=== PATIENT | female | born 1945 | race Caucasian/White ===

== ENCOUNTER 2020-12-26 07:04 | Inpatient (IN) | payer OTHER ==
[2020-12-26] VITALS (7 sets, daily range): BP systolic 124–149; BP diastolic 76–86
[~2020-12-26] VITALS: Ht 162.6 cm; Wt 59.9 kg
--- NOTE | ~2020-12-26 | EMS ---
[address] [address] EMS Patient Care Report Name: ELEANOR MOSQUEDA Room #: REG ALEIDA Mendosa#: [id number] Admission: 12/26/20 Attend Phys: Discharge: Date of : 43 Report #: [id number] THIS REPORT FOR: //name// Report Transmitted: 12/26/2020 07:15 EMS Care Summary [facility] MED-ACT Incident [id number] @ 12/26/2020 06:23 Incident Location [address] [place] [address] [place] [address] Patient ELEANOR MOSQUEDA Female, 75 Years 1945 Patient Address [address] [place] [address] Patient Allergies No known allergies, Patient Medications Aspirin, Chief Complaint Elbow Injury Disposition Transported No Lights/Hubbard Dispatch Reason Falls Transported To [facility] Narrative M1133 and E23 responded for a report of "Injuries from a Fall". Upon arrival on scene, E23 was rendering care to the patient, a 75 y/o female, sitting on the floor. The patient was crying hysterically and could not be calmed initially. Per care staff on scene, the patient was new to their facility as of today and they did not have much information known. The patient was in the [address] [address] EMS Patient Care Report Name: ELEANOR MOSQUEDA Room #: REG ER Deondre#: [id number] Admission: 12/26/20 Attend Phys: Discharge: Date of : 43 Report #: [id number] memory care unit, but due to EMS being unclear of her baseline, she was assigned a GCS of 14 as she was not appropriately able to answer questions about time, events, or place. Once the patient calmed down, she complained of pain to her right elbow. She was self splinting and would not allow responders to touch her arm at all or evaluate her. She agreed to allow responders to lift her from the floor to the stretcher. Once secured to the stretcher, patient was brought into the ambulance for further evaluation and transport. Upon arrival in the ambulance, EMS obtained baseline vitals. Patient's vitals remained within normal limits and patient reported her pain was manageable without pain medications as long as no one touched her arm. The patient continued to self-splint throughout transport. EMS palpated the patient's head, no swelling or deformities noted and no complaint of pain with palpation. The patient had no other visible injuries. Upon arrival at the hospital, EMS was directed to bring the patient to room 10. EMS gave report [id number] to ER staff and patient care was transferred at that time. Initial Vitals @06:57P: 118,R: 20,BP: 135/84,Pain: 6/10,GCS: 14,SpO2: 95,Revised Trauma: 12, @06:48P: 85,R: 20,BP: 123/72,Pain: 6/10,GCS: 14,Temp: 97.2F,SpO2: 98,Revised Trauma: 12, Assessments @06:37MENTAL:Confused,Person Oriented,SKIN:HEENT:LUNG SOUNDS:ABDOMEN:PELVIS//GI:EXTREMITIES:PULSE:NEURO: Impression Extremity Pain Procedures @06:40Surgical Mask on PatientResponse: Unchanged Timeline 06:20,Call Received 06:20,Psap Call 06:23,Dispatched 06:24,En Route 06:33,On Scene 06:35,At Patient 06:40,Surgical Mask on Patient,Response: Unchanged 06:47,Depart Scene 06:48,BP: 123/72 M,PULSE: 85,RR: 20 R,SPO2: 98 Ox,ETCO2: ,BG: ,PAIN: 6,GCS: 14, 06:57,BP: 135/84 M,PULSE: 118,RR: 20 R,SPO2: 95 Ox,ETCO2: ,BG: ,PAIN: 6,GCS: 14, [facility] [address] [place] [address] EMS Patient Care Report Name: ELEANOR MOSQUEDA Room #: REG ALEIDA Mendosa#: [id number] Admission: 12/26/20 Attend Phys: Discharge: Date of : 43 Report #: [id number] 07:00,At Destination 07:12,Call Closed Disclaimer v1.1 Copyright 2020 [employer] This EMS Care Summary contains data elements from the applicable legal record (which may be displayed differently). It is designed to provide pertinent information for the following purposes: continuity of care, clinical quality, and state data reporting. The complete legal record is available to ED staff and administrators of the receiving hospital in [facility]s Patient Tracker. All data is provided "as is."
[2020-12-26 08:38] LABS: HEMATOCRIT 39.9 % (37.0-47.0); HEMOGLOBIN 13.3 gm/dL (12.0-15.0); MCH 30.3 pg (26.0-34.0); MCHC 33.3 g/dL (28.0-37.0); MCV 90.8 fL (80.0-100.0); RBC 4.39 mil/uL (4.20-5.00); WBC 6.8 thou/uL (4.0-11.0)
[2020-12-26 08:49] LABS: CALCIUM 9.5 mg/dL (8.5-10.1); CREATININE 1.1 mg/dL (0.6-1.0); POTASSIUM 3.6 mmol/L (3.5-5.1)
[2020-12-26 08:54] LABS: ALBUMIN 3.8 g/dL (3.4-5.0); TOTAL BILIRUBIN 0.5 mg/dL (0.2-1.0); TOTAL PROTEIN 6.8 g/dL (6.4-8.2)
--- NOTE | 2020-12-26 12:06 | NUR ---
Case opened to follow for dc planning. Dermatologist Managing Partner visited with the pt at bedside this morning. She is alert and oriented to self only. She admits from [facility]. Dermatologist Managing Partner attempted to contact their DON x . She recently moved [facility] the memory care unit [facility] d/t increasing stm loss d/t dementia. The pt was up ad andrea but fell resulting in a displaced humerous fx. The pt's brother tifafny and sister in law donavan are her dpoa for hc and next of kin relatives. pt's pcp is dr. David Escobar. Covid neg test noted. Ortho consult for possible surgery this afernoon. CM attempted to reach her brother Tiffany via phone; message left. Anticipated dc plan is to return to the memory care when medically stable. Will reattempt to reach the [facility] and pt's bro to confirm the dc plan.
--- NOTE | 2020-12-26 13:54 | NUR ---
WOUND CONSULT; I WAS CONSULTED TO ASSESS THIS PATIENT FOR A RASH TO THE LE'S. THERE ARE NO WOUNDS ONLY HEALING SCABBED SCRATHES. THE PATIENT IS CONFUSED OR HAS A MENTAL HEALTH DIAGNOSIS, CONFABULATION OF WORDS. ERATIC BEHAVIOR ETC. RECOMMENDATIONS; D/C FROM WOUND CARE. DISCUSSED WITH TONEY
--- NOTE | 2020-12-26 15:04 | NUR ---
ROSEMARIE at [facility] Janet DYER [phone] and fax [phone]. Dc senior production planner to fax clinical update.
--- NOTE | 2020-12-26 17:16 | NUR ---
FAXED REFERRAL TO [facility] RECEIVED CONFIRMATION AND WILL F/U WITH MONET IN ADM TOMORROW.
--- NOTE | 2020-12-26 18:15 | NUR ---
PATIENT RETURNED FROM [facility] AT 1800. SLEEPING EASILY AROUSED. HAS SLING INTACT TO RIGHT ARM. V.S 98.0 16 97 141/84 O2 SAT= 98 RA. PT HAD ORIF RIGHT HUMERUS. NO RESP DISTRESS NO PAIN AT THIS TIME.
--- NOTE | 2020-12-26 20:14 | NUR ---
PATIENT CAME FROM ER WAS ADMITTED TO ROOM 436 COVID NEGATIVE TO HAVE ORIF RIGHT HUMERUS. PT WAS RESTLESS TRYING TO GET OUT OF BED. DR RODRIGUEZ GAVE 1 TIME ORDER FOR MARCO ANTONIO DUST BOX TENDER WANTED CONSULT FOR DR HERNANDEZ TO [facility] FOR SBU BUT SHE IS TAKING NO NEW PATIENTS PER DR RODRIGUEZ DUST BOX TENDER NOTIFIED. ADMISISSION PAPERWORK TO BE DONE BUT PATIENT HAS DEMENTIA AND UNABLE TO ANSWER QUESTIONS APPROP.
--- NOTE | 2020-12-27 01:52 | NUR ---
ASSESSED AT START OF SHIFT. PT IN BED. POST OP. LETHARGIC AND RESTLESS IN BED TRYING TO GET UP. ATIVAN GIVEN. IV INTACT AND ABX INFUSING. RT ARM DRESSING IN PLACE AND SLING INTACT. PT MOANS SOMETIMES. MORPHINE GIVEN FOR PAIN. PT BROTHER CALLED UNIT AND THIS NURSE UPDATED ON PROGRESS. FALL PREC IN PLACE AND CALL LIGHT AT REACH WILL CONT TO MONITOR.
[2020-12-27 03:14] VITALS: BP 147/91
[2020-12-27 05:33] LABS: ABSOLUTE NEUTROPHILS 7.8 thou/uL (1.4-8.2); BASOPHILS 0.2 % (0.0-2.0); EOSINOPHILS 0.1 % (0.0-3.0); HEMATOCRIT 39.3 % (37.0-47.0); HEMOGLOBIN 12.9 gm/dL (12.0-15.0); LYMPHOCYTES 6.6 % (24.0-44.0); MCH 30.2 pg (26.0-34.0); MCHC 32.9 g/dL (28.0-37.0); MCV 91.9 fL (80.0-100.0); MONOCYTES 10.1 % (1.0-8.0); PLATELET COUNT 308 thou/uL (150-400); RBC 4.27 mil/uL (4.20-5.00); RDW 13.8 % (10.5-14.5); WBC 9.4 thou/uL (4.0-11.0)
[2020-12-27 05:42] LABS: URINE BILIRUBIN NEGATIVE (Negative); URINE BLOOD NEGATIVE (Negative); URINE CLARITY CLEAR; URINE COLOR YELLOW; URINE GLUCOSE-RANDOM* NEGATIVE (Negative); URINE KETONES 2+ (Negative); URINE LEUKOCYTES-REFLEX NEGATIVE (Negative); URINE NITRITE-REFLEX NEGATIVE (Negative); URINE PROTEIN (DIPSTICK) NEGATIVE (Negative); URINE UROBILINOGEN 0.2 E.U./dl (0.2-1.0)
[2020-12-27 06:10] LABS: CALCIUM 8.7 mg/dL (8.5-10.1); CREATININE 0.9 mg/dL (0.6-1.0); POTASSIUM 3.6 mmol/L (3.5-5.1)
--- NOTE | 2020-12-27 07:22 | EKG ---
[place] [address] [place] [address] ELECTROCARDIOGRAM REPORT Name: ELEANOR MOSQUEDA Room #: 436-P ADM IN M.R.#: [id number] Admission: 12/26/20 Attend Phys: Maame Fitzpatrick Discharge: Date of : 41 Report #: [id number] [facility] ED Test Date: 2020-12-26 Test Time: 09:39:52 Pat Name: ELEANOR MOSQUEDA Department: Room: 436 Gender: F Heavy Equipment Service Manager: JOSE : 1945 Requested By: Ej Cm Order Number: [id number] MD: Sven Marie Measurements Intervals [place] Rate: 115 P: MT: QRS: -2 QRSD: 81 T: -3 QT: 341 QTc: 472 Interpretive Statements Sinus rhythm with occasional atrial premature complexes Poor R wave progression Nonspecific ST segment abnormality No previous ECG available for comparison Electronically Signed On 12-27-2020 7:22:07 GREETING CARD EDITOR by Sven Marie [email or web address] <ELECTRONICALLY SIGNED> By: Sven Marie MD, [facility] 12/27/20 0722 0939 09 Sven Marie MD, FACC /EPI
--- NOTE | 2020-12-27 07:41 | NUR ---
ASSUMED CARE OF PATIENT SHE IS SLEEPING IN BED NO RESP DISTRESS,NO PAIN SLING IN PLACE.
[2020-12-27 08:24] VITALS: BP 134/89
--- NOTE | 2020-12-27 11:48 | NUR ---
Pt's bro/dpsara Alexx updated on plan for psych/SBU eval. He is in agreement and supportive of that. He is aware that [facility] memory care is not comfortable with taking her back unless her behaviors/aggitation are addressed. Kaitlin eval pending.
--- NOTE | 2020-12-27 12:03 | NUR ---
LIBBY spoke with Janet at [facility],[phone]. Janet informed the Pt came to [place] from [facility]. While at [facility] Pt eloped, refused to take medications and had behavioral concerns that included increased aggression and increased anxiety. Pt was perscribed Sertraline and Buspar to assist with the behaviors but refused to take her medications. Upon Pt arriving to [place] Pt became increasingly aggitated, attempted to kick in other residents doors and break out glass. Pt was screaming, cussing and using her cat as a weapon ( holding the cat up to staff while the cat was hissing and clawing). During this episode Pt fell and hit her head. Janet stated that [place] is willing to take the Pt back if Pt's is stable and taking her medications with a decrease in negative behaviors. SW team will continue to follow up.
--- NOTE | 2020-12-27 13:25 | NUR ---
SW reviewed chart and spoke with nursing and attending physician. Pt is POD#1. Pt has right humerus fx. PT/OT to evaluate pt for recommendations for discharge. Psych consulted. Awaiting input from psych regarding possible inpt [facility] psych placement. SW to follow up with pt's brother, Alexx, after psych eval. SW is following to assist as needed with discharge planning.
[2020-12-27 16:07] VITALS: BP 121/67
--- NOTE | 2020-12-27 19:47 | NUR ---
[facility] HERE TO TRANSPORT PATIENT TO [facility] PATIENT WAS FROM THAT FACILITY. ASSIST XS 4 TO [facility]. ALL IV ACSESS WAS DCD PER REQUEST FROM [facility] BROWN WAS LEFT IN PLACE. PT WAS GIVEN MORPHINE BEFORE IV PULLED. HAS ANXIETY AND PULLS AT THINGS AND YELLS CONFUSED AT TIMES TAKES O2 /NC OFF. PT 'S FAMILY HERE BEFORE DISCHARGE TOOK BELONGINGS. REPORT WAS GIVEN AT 1700 TO GILMER AT [facility].
--- NOTE | 2020-12-27 23:06 | NUR ---
PER REPORT,PT RIPPED ALL HER DRSG OFF HER ARM AND REFUSED THE AM NURSE T FIX THE DRSG.PT WAS OBSERVED TO BE CONFUSED,FORGETFUL AND IMPULSIVE AT SHIFT CHANGGE.PT TRIED MULTIPLE TIMES TO GET OUT OF BED WITHOUT ASSISTANCE.PT WAS NOT REDIRECTABLE AT THE TIME.COMPLAINT EVALUATION OFFICER ON DUTY NOTIFIED,ORDER NOTED AND CARRIED OUT.PT SLEEPING AT THIS TIME.PT'S SURGERY SITE WITH BRUISING ALL OVER.DRSG ON HER ARM REINFORCED.CALL LIGHT WITHIN REACH.
[2020-12-28 07:45] VITALS: BP 110/73
--- NOTE | 2020-12-28 13:47 | NUR ---
CM TOLD BY DR COREAS DURING PT ROUNDING TO MOVE FORWARD W/SNF VS [facility]. CM SPK W/ PT'S BROTHER, KRISTINA MCCURDY SNF CHOICES. THE FOLLOWING ARE KRISTINA PREFERENCES IN CHRONOLOGICAL ORDER 1. [facility] - 1ST CHOICE 2. [facility] - 2ND CHOICE 3/4. [facility] (NO PREF BTWN THESE TWO) 5. [facility] - LAST CHOICE D/C AXLE BEARING POLISHER TO SEND REFERRALS TO [facility] AND [facility] THIS CM SENT REFERRALS TO [facility] [phone] (F), [facility] [phone] (F), AND [facility] [phone]. CM SPK W/MONIQUE AT [facility] AND SHE STATED THEY ARE WILLING ACCEPT PT BACK TO FACILITY AFTER SNF STAY
[2020-12-28 15:55] VITALS: BP 118/70
--- NOTE | 2020-12-28 18:30 | NUR ---
PT ASSESSED AT START OF SHIFT. ALERT AND PLEASANTLY CONFUSED. VERY FORGETFUL. UP TO AMBULATE HALLS W/ THERAPIST. SAT UP IN THE CHAIR FOR SEVERAL HOURS. TOOK RT ARM BRACE OFF OF ARM. MARCELA DSNG W/ SOME DRIED BLOODY DRAINAGE. BRACE REDONE. PT CONTINENT OF URINE. ATE GOOD AT DINNER. TALKED W/ BROTHER THIS AFTERNOON. PLAN FOR PT TO GO FOR REHAB.
[2020-12-28 19:59] VITALS: BP 120/80
--- NOTE | 2020-12-29 04:25 | NUR ---
ASSUMED PT CARE AT 1900.PT WAS CONFUSED/FORGETFUL AND IMPULSIVE AT START OF SHIFT.PT WAS OBSERVED CLIMBING OUT OF THE BED SEVERAL TIMES WITHOUT ASSISTANCE.PT STATED"I WANT TO GO AND GET THE KEVIN".PT NEEDED CONSTANT REMINDER FOR REDIRECTION.PT NOT COMPLAINT WITH FALL PRECAUTIONS.PRN PAIN AND ANXIETY MEDICATION GIVEN.PT SLEEPING ON HER BED AT THIS TIME.CALL LIGHT WITHIN REACH.
[2020-12-29 08:02] VITALS: BP 143/95
[2020-12-29] MEDS ORDERED: COLACE 100 MG100 MG PO (09:42)
[2020-12-29] MEDS ORDERED: VITAMIN B-12500 MCG PO (09:42)
[2020-12-29] MEDS ORDERED: RISPERDAL 1 MG T1 MG PO (09:42)
[2020-12-29] MEDS ORDERED: PEPCID20 MG PO (09:42)
[2020-12-29] MEDS ORDERED: TRAMADOL 50 MG50 MG PO (09:43)
--- NOTE | 2020-12-29 14:06 | NUR ---
Assumed pt care at 7am.Pt in bed very confused and disoriented.Getting out of bed without assist.Ttransfered pt to chair with assist.Am meds given with breakfast.Pt calm down for few hours before showing severe agitation.Dr Fitzpatrick notified,order noted.Seroquel po given as ordered.Pt later relaxed and calm. Will continue to monitor.
[2020-12-29 15:00] VITALS: BP 181/97
[2020-12-29 16:15] VITALS: BP 135/84
[2020-12-29 16:29] VITALS: BP 135/84
--- NOTE | 2020-12-29 19:40 | NUR ---
PT CARE ASSUMED AT 1615. ASSESSMENTS CHARTED. MEDICATIONS CHARTED. LAC IV. INCONTINENT B&B. SINUS TACHYCARDIA; SVT UP ON 4TH FLOOR. CLOSED FX OF DISTAL RT HUMERUS. STITCHES ON RT ELBOW. PT IS IN WRIST RESTRAINTS DUE TO PULLING ON MEDICAL EQUIPMENT AND COMBATIVE BEHAVIOR, WILL THROW THINGS. PT IS A FEEDER.
[2020-12-29 22:17] VITALS: BP 135/84
[2020-12-30] VITALS (9 sets, daily range): BP systolic 126–160; BP diastolic 63–110
--- NOTE | 2020-12-30 07:38 | NUR ---
PATIENT SLEPT A COUPLE HOURS TONIGHT. ALERT TO SELF; VERY CONFUSED. IN WRIST RESTRAINTS. PT HAD SITTER DURING SHIFT. PT DENIED MOST CARES AND MEDS THROUGHOUT THE NIGHT. PT HAS HX OF BEING COMBATIVE. ST ON THE MONITOR. FALL PRECAUTIONS IN PLACE. CONTINUING TO ASSESS CLOSELY ACCORDING TO POC.
--- NOTE | 2020-12-30 20:02 | NUR ---
PT CARE ASSUMED AT 0700. ASSESSMENTS CHARTED. MEDICATIONS CHARTED. LAC IV. SINUS TACHYCARDIA. RESTRAINTS - SOFT BILAT RESTRAINTS. CLOSED FX OF DISTAL RT HUMERUS. AGITATED, COMBATIVE AT TIMES.
[2020-12-31] VITALS (8 sets, daily range): BP systolic 99–137; BP diastolic 54–90
[2020-12-31 03:26] LABS: HEMATOCRIT 36.6 % (37.0-47.0); MCH 30.2 pg (26.0-34.0); MCHC 32.8 g/dL (28.0-37.0); MCV 91.9 fL (80.0-100.0); RBC 3.99 mil/uL (4.20-5.00); RDW 13.8 % (10.5-14.5); WBC 7.3 thou/uL (4.0-11.0)
[2020-12-31 03:36] LABS: CALCIUM 8.6 mg/dL (8.5-10.1); CREATININE 0.8 mg/dL (0.6-1.0)
--- NOTE | 2020-12-31 07:24 | EKG ---
[address] [employer] [address] ELECTROCARDIOGRAM REPORT Name: ELEANOR MOSQUEDA Room #: 219-P ADM IN M.R.#: [id number] Admission: 12/26/20 Attend Phys: Maame Fitzpatrick Discharge: Date of : 41 Report #: [id number] [facility] Test Date: 2020-12-29 Test Time: 14:52:15 Pat Name: ELEANOR MOSQUEDA Department: Room: 219 Gender: F Director Erp: : 1945 Requested By: Maame Fitzpatrick Order Number: [id number] MD: Marco Smith Measurements Intervals [place] Rate: 142 P: 43 LA: 139 QRS: -12 QRSD: 77 T: -11 QT: 283 QTc: 435 Interpretive Statements Supraventricular tachycardia Multiform ventricular premature complexes Repolarization abnormality, prob rate related Compared to ECG 12/26/2020 09:39:52 Ventricular premature complex(es) now present Early repolarization now present Sinus rhythm no longer present Atrial premature complex(es) no longer present Poor R-wave progression no longer present ST (T wave) deviation no longer present Electronically Signed On 12-31-2020 7:24:47 DIRECTOR OF SERVICES by Marco Smith [email or web address] <ELECTRONICALLY SIGNED> By: Marco Smith MD, FAC 12/31/20 0724 1452 1452 Marco Smith MD, FAC /EPI
--- NOTE | 2020-12-31 08:15 | NUR ---
ASSUME CARE 1900. PT/VITALS STABLE. INTERMITEENT LEFT ARM PAIN. MODERATE TOLERACE TO ACTIVITY. ASSESSMENT CHARTED. PROGRESING WELL WITH POC. PT IS A/O TO PERSON ONLY AND SOMETIMES UNCOOPERATIVE WITH CARE. SR/ST ON MONITOR. PLAN IS TO CONTINUE TO MONITOR FOR INFECTION/MANAGE PAIN. WILL FOLLOW WITH POC
--- NOTE | 2020-12-31 16:52 | NUR ---
Patient continues in restraints. Sp with brother discussed difficult stiuation as patient with need for skilled care rehab care and at times combative. Plan to send referrals to [facility]. No skilled facilites have responded to refrrals at this time.
--- NOTE | 2020-12-31 19:09 | NUR ---
PT CARE ASSUMED AT 0700. ASSESSMENTS CHARTED. MEDICATIONS CHARTED. LAC IV. RESTRAINTS REMOVED PER DR DIAZ, NOT INTERFERING WITH DEVICES. SINUS RHYTHM. PT FEEDING HERSELF.
[2021-01-01 05:00] VITALS: BP 129/89
[2021-01-01 08:00] VITALS: BP 119/54
--- NOTE | 2021-01-01 08:30 | NUR ---
ASSUME CARE 1900. PT/VITALS STABLE. INTERMITTENT YENIFER PAIN WITH RELIEF MODRATE RELIEF FROM PAIN MEDS. UP STB ASSIST/GOOD ENDURANCE TO ACITIVITY. NO DISTRESS NOTED. A/O TO SELF/CONFUSED/FORGETFUL BUT PLEASANT. HAS BECOME MORE COOPERATIVE WITH CARE, TAKES MEDS, AND FOLLOWS COMMANDS. PT SEEMS TO BE MORE AWARE EVEN OF PLACE AND PERSON EVEN THOUGH STILL VERY FORGETFUL OF SITUATION O INCONTINENCE NOTED. PT UP TO BATHROOM WITH SUPERVISION. WILL CONTINUE TO MONITOR AND FOLLOW WITH POC
[2021-01-01 12:30] VITALS: BP 112/60
--- NOTE | 2021-01-01 12:32 | NUR ---
[facility] declined patient. [facility] did not receive referral. Spoke with [facility] [place]. Sp with Lucie with their SBU. No bed avail today but they will review. Son expressed interest in [facility]. Patient restraint free this am.
--- NOTE | 2021-01-01 16:52 | NUR ---
ASSUMED PT CARE AT 0700. PT IN BED RESTING. PT IS ALERT AND ORIENTED TO SELF. PT IS PLEASANT AND COOPERATIVE. PT REMAINED PLEASANT AND COOPERATIVE TODAY. PT HAS BEEN OUT OF RESTRAINTS FOR 24 HOURS AND SW IS WORKING ON PT PLACEMENT. VSS. WILL CONTINUE TO MONITOR.
[2021-01-01 17:00] VITALS: BP 139/80
--- NOTE | 2021-01-01 17:21 | NUR ---
REFAXBRAD PRINCE TO [facility] RECEIVED CONFIRMATION AND LEFT MSG WITH KATY IN ADM WILL F/U WITH HER TOMORROW AM.
--- NOTE | 2021-01-01 17:23 | NUR ---
FAXED REFERRAL TO [facility] RECEIVED CONFIRMATION WILL F/U WITH FACILITY IN THE AM.
[2021-01-01 19:31] VITALS: BP 140/68
[2021-01-02 04:25] VITALS: BP 138/93
--- NOTE | 2021-01-02 07:30 | NUR ---
ASSESSMENT CHARTED, MEDS CHARTED GIVEN PATIENT HAS RIGHT ARM IN SPINT POST HUMERUS FX SURGERY. HX DEMENTIA. PATIENT CONFUSED ALL SHIFT. REPEATEDLY PULLING AT MEDICAL EQUIPMENT, GETTING OUT OF BED, FOLDING BEDDING. WOULD REDIRECT EASILY, THEN RETURN TO PREVIOUS CONFUSED THOUGHT TRAIN. BED ALARM ON AT ALL TIMES. FALL PRECAUTIONS IN PLACE DURING SHIFT.
[2021-01-02 08:00] VITALS: BP 122/82
--- NOTE | 2021-01-02 10:13 | NUR ---
Nutrition: pt admitted S/P fall with humerus fx, ORIF. Feeds self and reports good appetite, eating 50-75% of meals. Enjoys the food. K-3.2, replacing. Also on B12 supplementation. No weight changes. Low nutrition risk.
--- NOTE | 2021-01-02 14:46 | NUR ---
NEW IV 22G STARTED IN HER LEFT AC HER OTHER ONE NEAR THAT AREA WAS LEAKING ALL AROUND THE TIP SITE. SHE IS NO LONGER CLIMBING OUT OF BED AND ASKING ABOUT HER CATS. ENCOURAGE HER TO JUST SLEEP NOW AND TAKE A BREAK.
--- NOTE | 2021-01-02 15:36 | NUR ---
[facility] declined patient. [facility] declined patient who feel she needs memory care. SBU at [facility] unable to accept due to capacity. [facility] declined patient. Referrals to [facility] and [facility] for behavioral health. [facility] declined due to capacity. Sp with brother Alexx. He reports he has concerns of patient having an episode again of outburst. He is less concerned with physical rehab. He is aware restraint free for 24 hours but wants to be assured she is stable on regime. Discussed how she did today with nursing and relayed to son. Son unsure of any other skilled facility to review.
[2021-01-02 19:40] VITALS: BP 131/70
[2021-01-03 03:50] VITALS: BP 114/52
--- NOTE | 2021-01-03 06:36 | NUR ---
ASSESSMENTS CHARTED, MEDS CHARTED GIVEN. PATIENT SLEPT THE ENTIRE SHIFT AFTER INITIAL ANXIOUS CONFUSSION. REWRAPPED ROSARIO BANDAGE WRAP AFTER PATIENT DISMANTLED SPLINT. MARCELA DRESSING STILL INTACT. PATIENT UP TO BATHROOM WITH STANDBY ASSIST DURING SHIFT. FALL PRECAUTIONS IN PLACE DURING SHIFT.
[2021-01-03 08:15] VITALS: BP 131/74
--- NOTE | 2021-01-03 10:57 | NUR ---
FAXED REFERRAL TO [facility] RECEIVED CONFIRMATION AND WILL F/U WITH ADM FAXED REFERRAL TO [facility]. FOR [facility] SPOKE WITH SLAVA IN ADM THEY DENIED PT DOES NOT MEET THEIR CRITERIA AND IS NOT IN ACUTE DISTRESS.
[2021-01-03 12:15] VITALS: BP 130/68
--- NOTE | 2021-01-03 16:12 | NUR ---
Case discussed with the care team. Referrals sent to [facility] memory care which offers skilled rehab. They have one bed and are evaling. They need therapy updates, clearance from psych, no iv meds or restraints for 24hrs, and covid neg test to accept. Referral also sent to [facility]. They declined and do not feel the pt meets the inpt criteria. Pt's brother Alexx updated. Covid test pending. Pt given IV ativan this am due to picking at her iv and splint dressing. Case discussed with psych and the attending. They will reeval and feel the pt may be able to dc to SNF at [facility] or even return to her [facility] memory care at [facility] vs needing a kellie psych stay. Pt's brother updated. Awaiting psych imput, covid test, and updated therapy notes.
[2021-01-03 16:15] VITALS: BP 130/62
--- NOTE | 2021-01-03 19:09 | NUR ---
PT CARE ASSUMED AT 0700. ASSESSMENTS CHARTED. MEDICATIONS CHARTED. LAC IV. BSC. SINUS RHYTHM. ATIVAN D/C'D. POSSIBLE DISCHARGE TOMORROW. PT GOT OUT OF BED AND ENTERED THE FROST ONCE.
[2021-01-03 19:58] VITALS: BP 126/56
--- NOTE | 2021-01-04 05:13 | NUR ---
ASSUMED PATIENT CARE AT 1845. VITAL SIGNS STABLE WITH PATIENT HAVING NO COMPLAINTS OF NAUSEA. PATIENT DID COMPLAIN OF PAIN IN LEFT ARM AND ELBOW WHICH WAS TREATED APPROPRIATELY THROUGH MEDICATIONS TO GOOD AFFECT. ORIENTED TO SELF, CONFUSED AND IMPULSIVE. PATIENT WAS MOVED TO ROOM 217 TO BE CLOSER TO NURSES STATION. UP MULTIPLE TIMES WITH ASSISTANCE INCIDENT FREE, PATIENT IS A HIGH FALL RISK. CONTINUE PLAN OF CARE.
[2021-01-04 05:17] VITALS: BP 117/73
[2021-01-04 07:40] VITALS: BP 130/57
--- NOTE | 2021-01-04 08:20 | NUR ---
ASSUMED CARE FOR PT AT THIS TIME. PT SITTING UP IN BED, ASKING REPEATEDLY ABOUT "WHERE ARE THE GUYS", REORIENTED PT. PT CALM AND COOPERATIVE AT THIS TIME. MEDICATION ADMINISTRATION. VSS. WILL CONTINUE TO MONITOR.
[2021-01-04] MEDS ORDERED: METOPROLOL TART25 MG PO (10:38)
[2021-01-04] MEDS ORDERED: TYLENOL EXTRA500 MG PO (10:38)
--- NOTE | 2021-01-04 11:11 | NUR ---
[facility] has accept the pt for a rehab stay. Pt's brother Alexx updated and agreeable. Update given to Janet the DON at [facility] also. They are willing to accept her back after her rehab stay. The [facility] liason has also talked with Janet and Alexx. Neg covid test and dc orders faxed and verified with admissions. Chart copy is ready to be sent with the pt and nursing to call report. Alexx to email a copy of his dpoa document to admissions at [facility]. They have a w/c van transport scheduled for noon. All parties updated.
[2021-01-04 11:35] VITALS: BP 113/70
--- NOTE | 2021-01-04 11:51 | NUR ---
ATTEMPTED REPORT AT 1125 AND AGAIN AT 1150. UNABLE TO REACH NURSE. TRANSPORTATION SET UP FOR NOON. WILL HAVE PT PREPARED FOR TRANSPORTATION.
--- NOTE | 2021-01-04 12:23 | NUR ---
PT LEFT UNIT VIA WHEELCHAIR AND [place]ANNON STAFF. IV D/C. PT AMBULATED TO WHEELCHAIR.
--- NOTE | 2021-01-09 15:09 | O ---
[facility] [place] [address] OPERATIVE REPORT Name: ELEANOR MOSQUEDA Room #: 217-P [facility] IN M.R.#: [id number] Admission: 12/26/20 Attend Phys: Maame Fitzpatrick Discharge: 01/04/21 Date of : 41 Report #: [id number] THIS REPORT FOR: cc: FAM - Family physician unknown FAM - Family physician unknown Ez March MD ~ DATE OF SERVICE: 12/26/2020 PREOPERATIVE DIAGNOSIS: Right intraarticular comminuted distal humerus fracture. POSTOPERATIVE DIAGNOSIS: Right intraarticular comminuted distal humerus fracture. PROCEDURE: ORIF right distal humerus fracture with olecranon osteotomy. SURGEON: Ez March MD. STREAM CONTROL OFFICER: Izabela Monique PA-C. INDICATIONS FOR STREAM CONTROL OFFICER: Throughout the case, extensive retraction and manipulation of the elbow was required as well as maintenance of reduction of fracture during fixation. This was afforded to me by my business development assistant. ANESTHESIA: LMA. IMPLANTS: [employer] medial and lateral distal humeral locking plate and a short olecranon locking plate for osteotomy fixation. TOURNIQUET TIME: 77 minutes. ESTIMATED BLOOD LOSS: 25 mL. COMPLICATIONS: None. SPECIMENS: None. CONDITION UPON LEAVING THE OPERATING ROOM: Stable. INDICATIONS FOR PROCEDURE: The patient is a 75-year-old female who fell at her nursing facility and sustained a closed comminuted intra-articular distal humerus fracture. This had significant displacement and after discussion with her durable power of patent attorney elected for ORIF of the distal humerus. DESCRIPTION OF PROCEDURE: Risks, benefits, alternatives, complications were [facility] [address] [place] [address] OPERATIVE REPORT Name: ELEANOR MOSQUEDA Room #: 217-P DIS IN M.R.#: [id number] Admission: 12/26/20 Attend Phys: Maame Fitzpatrick Discharge: 01/04/21 Date of : 41 Report #: [id number] discussed in detail with the patient's durable power of patent attorney, including but not limited to risk of anesthesia, risk of damage to nerves, arteries, blood vessels, risk for malunion, nonunion, infection, need for reoperation. Informed consent was obtained from the DPOA. Right arm was appropriately marked in the preoperative holding area. She was brought to the operating room and LMA anesthesia was induced without complication. She was transferred to the operating room table and placed in the left lateral decubitus position and secured with the beanbag. Right upper extremity was prepped and draped in normal sterile fashion. Timeout was performed properly identifying the patient and procedure as well as the instrumentation and implants. All in the operating room were in agreement. A sterile tourniquet was applied. Right upper extremity was exsanguinated, tourniquet was inflated. Tourniquet time was 77 minutes. A standard posterior approach to the distal humerus was made with #10 blade through the skin. Dissection was taken down to the triceps fascia and deep flaps were developed medially and laterally. We first attempted to just do medial and lateral windows without olecranon osteotomy. The ulnar nerve was identified, dissected out and protected throughout the case. Medial and lateral window was made along the distal triceps. Fracture was identified and cleaned out. We were unable to visualize completely the distal and after there was a comminuted intraarticular portion and it was felt to adequately fix this an olecranon osteotomy would be required. A small sagittal saw was then used to make an osteotomy and the triceps was reflected. The fracture was more easily visualized and was held reduced with the multiple K wires as well as a [id number] reduction forceps. A posterolateral plate was applied to the lateral column and multiple 3.7 and 3.5 locking screws were placed for lateral column fixation. Medial column was fixed with a direct medial plate with combination of 2.7 marking as well as 3.5 locking screws for fracture fixation and placement of hardware as was the case. After this, the olecranon osteotomy was fixed with a short olecranon plate with the 4 screws total used for olecranon osteotomy fixation through the plate. Final fluoroscopic images were taken to verify adequate fracture reduction and placement of hardware as was the case. The wound was thoroughly irrigated with normal saline. The deep fascia was closed with 0 Vicryl and the ulnar nerve was transposed anteriorly and skin was closed with 2-0 Vicryl, skin staple and a posterior splint was applied. The patient tolerated this procedure well and went to the recovery room under care of anesthesia postoperatively. <ELECTRONICALLY SIGNED> By: Ez March MD 01/09/21 1509 1718 1804 Ez March MD /nt
== END 2021-01-04 12:25 | DRG 492 ==
LOC: ER 07:04 → EROBS 09:55 → 4S 09:55 → 2N 12-29 15:38
PROVIDERS: Emergency Medicine; Hospitalist; Nurse Practitioner; ADMIT Hospitalist; ATTEND Hospitalist
PROC: 0PSF04Z Reposition Right Humeral Shaft with Internal Fixation Device, Open Approach (ICD-10-PCS; principal; 2020-12-26)
DX: S42.411A Displaced simple supracondylar fracture without intercondylar fracture of right humerus, initial encounter for closed fracture (principal); N17.0 Acute kidney failure with tubular necrosis; G92 Toxic encephalopathy; F03.91 Unspecified dementia, unspecified severity, with behavioral disturbance; Z66 Do not resuscitate; E53.8 Deficiency of other specified B group vitamins; E87.6 Hypokalemia; R21 Rash and other nonspecific skin eruption; Z20.822 Contact with and (suspected) exposure to COVID-19; Z47.89 Encounter for other orthopedic aftercare; Z79.899 Other long term (current) drug therapy; W18.39XA Other fall on same level, initial encounter; Y93.89 Activity, other specified; Y92.89 Other specified places as the place of occurrence of the external cause; Y99.8 Other external cause status
CPT/HCPCS: 10081; 10102; 50010; 50101; 50386; 50417; 50951; 51412; 52122; 56524; 56528; 57178; 57254; 58280; 58515; 58516; 58517; 58518; 58519; 58520; 58521; 58522; 58523; 58524; 58525; 58526; 58527; 58528; 58529; 58530; 58531; 58540; 62110; 62900; 70005

== ENCOUNTER 2021-03-06 08:55 | Inpatient (IN) | payer OTHER ==
[~2021-03-06] VITALS: Ht 160 cm; Wt 55.7 kg
[~2021-03-06 08:55] MED LIST: ANTACID ULTRA PO; CENTRAVITES 501 EAC1 PO; COLACE 100 MG100 MG PO; COLACE100 MG PO; DOXYCYCLINE 10100 MG PO; EUCERIN CREME57 GM TOP; METOPROLOL TART25 MG PO; OMEPRAZOLE 20 M20 M1 PO; PEPCID20 MG PO; RISPERDAL 1 MG T1 MG PO; TRAMADOL 50 MG50 MG PO; TYLENOL EXTRA500 MG PO; VITAMIN B-121000 MC2 PO; VITAMIN B-12500 MCG PO; VITAMIN D325 MC3 PO
--- NOTE | 2021-03-06 15:00 | NUR ---
PT ADMITTED RELATED TO INCISION AND DRAINAGE OF ELBOW. CM REVIEWED CHART AND SPOKE WITH CARE TEAM. CM MET WITH PT AND BROTHER SANGEETHA AT BEDSIDE THIS DAY. THEY INDICATED THAT PT RESIDES AT [facility]. 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 HE INDICATED NO RECENT HH HX. PT HAD BEEN TO [facility] FROM 01/04-01/18. CM CALLED AND SPOKE WITH MONET AT [facility] AND SHE INDICATED THAT PT NEEDED [facility] FOR ADLS BUT OTHERWISE [facility]. PT AND BROTHER INDICATED THAT THEY HOPE THAT PT WILL BE ABLE TO RETURN TO [facility] ONCE MEDICALLY STABLE. [facility] SAID THEY WOULD BE ABLE TO ACCEPT HER BACK LONG SHE WASN'T ON ANY IV ABX UPON DC.
[2021-03-06 16:02] VITALS: BP 160/81
[2021-03-06 19:17] VITALS: BP 152/87
--- NOTE | 2021-03-06 20:28 | NUR ---
ASSUMED PT CARE AROUND 1814. PT ALERT X ORIENTED X 3, FORGET FUL.IV LF WRIST WITH LR/ 100ML/HR.VSS. FALL PRECAUTION IN PLACE. SCDS/TEDS ON.ROSARIO WRAP IN RT ELBOW. BROTHER WAS IN THE ROOM WHEN THE PT CAME TO THE FLOOR. BROTHER SAID, SHE MGHT NEED SOME ANXIETY MEDS. SHIFT REPORT GIVEN TO NIGHT NURSE.
--- NOTE | 2021-03-07 05:40 | NUR ---
PT IS ALERT TO SELF. CONFUSED AND IMPULSIVE. DOES OT KEEP SLING ON-R ELBOW WITH SPLINT INTACT. PT BEEN GOING TO THE BATHROOM WITH SBA.SHE TOOK HS MEDS-NO SWALLOW DIFFICULTIES. VOIDING OKAY, R FINGERS WITH GOOD CSM.AFEBRILE.FALL PREC IN PLACE.
[2021-03-07 08:00] VITALS: BP 131/72
--- NOTE | 2021-03-07 12:47 | NUR ---
ON-GOING ASSESSMENT: CM REVIEWED CHART. PT REMAINS ON IV ANBX. ID WAS CONSULTED TO SEE PATIENT. CM RECEIVED A CONSULT THAT PT WILL LIKELY NEED TO REMAIN ON IV ANBX FOR SOME TIME PENDING ID RECOMMENDATIONS. PT IS FROM [facility] WHO CANNOT ACCEPT HER ON IV ANBX AND SHE WILL LIKELY NEED SNF. CM REACHED OUT TO PATIENTS BROTHER/DPOA TO DISCUSS. PT WAS RECENTLY AT [facility] AND HE PREFERS SHE GOES BACK THERE. CM FAXED REFERRAL AND AWAITING INPUT FROM [facility] AND REQUESTED TO CHECK HER SNF DAYS.
[2021-03-07 16:45] VITALS: BP 137/69
--- NOTE | 2021-03-07 18:12 | NUR ---
PT CONFUSED AND IMPULSIVE. BED ALARM/CHAIR ALARM IN USE. PT IN ROOM ACROSS FROM RN DESK. FREQUENTLY ATTEMPTING TO GET OUT OF BED/CHAIR WITHOUT ASSISTANCE. RIGHT ARM SPLINT/ROSARIO BANDAGE IN PLACE. SENSATION INTACT TO FINGERS. DENIES NUMBNESS/TINGLING TO LEFT ARM, HAND, FINGERS. PT STATES PAIN IS WELL CONTROLLED BY SCHEDULED PAIN MEDICATION. SPOKE WITH PT'S DPOA KRISTINA THIS AM AND UPDATED HIM. WILL CONTINUE TO MONITOR PATIENT.
[2021-03-07 23:59] VITALS: BP 138/78
--- NOTE | 2021-03-08 01:11 | NUR ---
PT ASSESSED AT START OF SHIFT VERY RESTLESS AND ANXIOUS. MEDICATION PROVIDED. PT IMPULSIVE AND GETS OUT OF BED. FALL PRECAUTION MAINTAINED. RT ARM CAST INTACT. PAIN MEDICATION ALSO PROVIDED. PT UP WITH ASSITX1 TO THE BATHROOM. IV INTACT IN LEFT FA AND ABX GIVEN. CALL LIGHT AT REACH, FREQ ROUNDING DONE. WILL CONT TO MONITOR.
[2021-03-08 08:10] VITALS: BP 133/88
--- NOTE | 2021-03-08 08:21 | HC ---
[facility] [place] [address] CONSULTATION Name: ELEANOR MOSQUEDA Room #: 436-P ADM IN M.R.#: [id number] Admission: 03/06/21 Attend Phys: Ez March MD Discharge: Date of : 41 Report #: [id number] THIS REPORT FOR: cc: Abel Chau Kevin E. DO Barry, Joseph W. MD ~ DATE OF SERVICE: 03/07/2021 INFECTIOUS DISEASE CONSULTATION ATTENDING PHYSICIAN: Dr. March. REASON FOR EVALUATION: Suspected deep infection involving the right elbow. HISTORY OF PRESENT ILLNESS: Chart reviewed, the patient examined. This is a 75-year-old woman with fairly profound dementia who apparently injured herself with a fall, had a fractured humerus. This was repaired in January. Details are unclear. She is unable to give history, but seemingly felt may well have become infected. She underwent operative debridement with removal of olecranon plate. She is seen postop. Cultures have been collected thus far otherwise unremarkable. Gram stain showed rare white cells, no organisms seen. She has been afebrile, seemingly denies any pulmonary or gastrointestinal related complaints. She does admit to elbow pain. ALLERGIES: None known. MEDICATIONS: Include acetaminophen, docusate sodium, pantoprazole, tramadol, risperidone, metoprolol, hydrocodone, promethazine, morphine as needed, cefazolin. PAST MEDICAL HISTORY: Include known dementia, history of humerus fracture. SOCIAL HISTORY: Nonsmoker, no ethanol, no illicit drug use. FAMILY HISTORY: Noncontributory. REVIEW OF SYSTEMS: Not reliably obtained. PHYSICAL EXAMINATION: GENERAL: She is quite confused. She is pleasant, cooperative, in kdkf-lu-rqjucell distress. VITAL SIGNS: Temperature 99.3, pulse 81, respirations 18, blood pressure 131/72. SKIN: Warm, dry, no rashes. HEENT: Normocephalic. Extraocular muscles intact. [facility] [address] [place] [address] CONSULTATION Name: ELEANOR MOSQUEDA Room #: 436-P [facility] IN ..#: [id number] Admission: 03/06/21 Attend Phys: Ez March MD Discharge: Date of : 41 Report #: [id number] NECK: Supple. LUNGS: Clear breath sounds. HEART: Regular, soft systolic murmur. ABDOMEN: Soft, nontender, nondistended. EXTREMITIES: There is an Ronny wrap with a compression dressing placed over the right upper extremity. GENITOURINARY AND RECTAL: Deferred. LABORATORY DATA: As described above. Coronavirus testing was negative. ASSESSMENT AND PLAN: Suspected deep infection involving the right elbow in the postoperative setting. She is post-hardware removal. We will continue empiric therapy with cefazolin, get some baseline labs. Await culture results. At this point, she is not overtly toxic. Await further information to decide about requirement for long-term therapy. She is able to cooperate with additional measures like incentive spirometry. <ELECTRONICALLY SIGNED> By: Alvino Gaspar MD 03/08/21 0821 1511 1850 Alvino Gaspar MD /nt
--- NOTE | 2021-03-08 11:58 | NUR ---
ASSUMED PT CARE AROUND 0715. PT ALERT X ORIENTED X 1, FORGETFUL.IMPULSIVE, HAS TO REORIENT. IV LF FA SALINE LOCKED, TRIES TO PULL OU IV. 1X PERSON ASST.ON REGULAR DIET. RN TALKED TO PT'S BROTHER KRISTINA. REFUSED SCDS. FALL PRECAUTION IN PLACE, BED ALARM ON, CALL LIGHT IN REACH. WILL CONTINUE TO MONITOR. COVID SWAB TAKEN AND SENT TO LAB.
--- NOTE | 2021-03-08 14:56 | NUR ---
ON-GOING ASSESSMENT: CM REVIEWED CHART. PT IS PROGRESSING TOWARDS DISCHARGE GOALS. PT REMAINS ON IV ANBX. PENDING ID RECS FOR FINAL ANTIBIOTICS WILL DEPEND ON DISCHARGE PLAN. IF PATIENT IS NEEDING IV ANBX AT DISCHARGE A PICC WILL NEED TO BE PLACED AND [facility] CAN ACCEPT. (HER [facility]ED LIV[facility] CANNOT ACCEPT HER BACK ON IV ANBX). [facility] FOR [facility] CAN BE REACHED ON ADMISSIONS PHONE AT [phone] TO FACILITATE AND WILL PROVIDE FAX # FOR DISCHARGE ORDERS AND ARRANGE TRANSPORT. CHART COPY WILL NEED TO BE SENT. IF CULTURES COME BACK AND PT DOES NOT NEED IV ANBX SHE CAN RETURN TO HER ASSISTED LIVING FACILITY AT [facility] ([phone]). ERWIN CONFIRMED THIS WITH TONEY AMAYA AT FACILITY. CM FAXED [facility] UPDATES TO THEIR FAX:[phone]. CONTACT FOR [facility]:[phone] THEY MUST BE NOTIFIED IF PATIENT IS DISCHARGING BACK TO THEM OVER THE WEEKEND AND WILL PROVIDE THE BEST NUMBER FOR YOU TO FAX ORDERS. TRANSPORT WILL NEED TO BE ARRANGED THROUGH [facility] IF SHE IS GOING BACK TO [place]:[phone]. PTS BROTHER KRISTINA/DPOA [phone] REQUEST TO BE UPDATE AT THE TIME OF DISCHARGE. LIKELY PLAN IS TO DISCHARGE TO SNF PENDING RECOMMENDATIONS FOR ANBX.
[2021-03-08 16:01] VITALS: BP 138/74
[2021-03-08 20:11] VITALS: BP 148/84
--- NOTE | 2021-03-09 04:25 | NUR ---
RECEIVED CARE OF THIS PATIENT AT 1900. PATIIENT ALERT AND ORIENTED TO SELF ONLY. DRESSING ON R ARM D/I. REFUSES TO WEAR SLING. IMPULSIVE AT TIMES AND TRIES TO GET OUT OF BED. EASILY REDIRECTED. SLEPT MOST OF NIGHT, DENIES PAIN.
[2021-03-09 07:35] VITALS: BP 134/78
[2021-03-09] MEDS ORDERED: CEFAZOLIN2 GM/100 M IV (12:43)
--- NOTE | 2021-03-09 15:19 | NUR ---
ASSUMED PT CARE AROUND 0700. PT X ALERT X ORIENTED XSELF. ON ROOM AIR. IV LF FA.IMPULSIVE, TRYING TO GET OUT OF BED. RN SPOKE TO BROTHER, BROTHER WANTING TI KNOW WHEN PICC LINE WILL BE INSERTED AND PT READY TO GO. RN LET INFECTIOUS DR KNOW ABOUT IT. PICCLINE CONSENT FORM OBTAINED AND IV TEAM NOTIFIED. RN NOTIFIED BROTHER ABOUT THE PLAN. FALL PRECAUTION IN PLACE. WILL CONTINUE TO MONITOR.
--- NOTE | 2021-03-09 16:29 | NUR ---
VAT CONSULTED FOR PICC PRIOR TO DC TODAY. PT'S LABS,MEDS,HX,ORDER AND CONSENT VERIFIED. DWIGHT BASILIC WAS WIDELY PATENT WITH USG MEASURED 36%. 4FR SL POWER PICC TRIMED TO 41CM INSERTED TO 1CM EXTERNAL WITH PEAKED P-WAVE ON 3CG FOR CONFIRMATION. PT TOLERATED WELL, WALLET CARD PLACED IN TRANSFER PAPERS. PICC RELEASED FOR IMMEDIATE USE PER PROTOCOL TO ELOISA ZIEGLER
[2021-03-09 17:27] VITALS: BP 166/113
[2021-03-09 19:53] VITALS: BP 131/74
--- NOTE | 2021-03-10 00:02 | NUR ---
PT AMBULATING TO BATHROOM WITH ASSIST X1 AND IS TOLERATING WELL. DENIES NEED FOR PAIN MEDICATION. RESTING COMFORTABLY. NO NEEDS VOICED. CALL LIGHT WITHIN REACH. FREQUENT OBSERVATION.
[2021-03-10 07:14] VITALS: BP 138/84
[2021-03-10 08:53] VITALS: BP 138/84
--- NOTE | 2021-03-10 09:27 | NUR ---
Assumed care of pt at 0700. Pt confused and impulsive. Denies pain. SBA. RA. PICC line in place. Called liason at [facility] to inquire about discharge today and left a voicemail. Awaiting call back. Call light within reach. Fall precautions in place. Will continue to monitor.
--- NOTE | 2021-03-11 08:23 | O ---
[facility] [place] [address] OPERATIVE REPORT Name: ELEANOR MOSQUEDA Room #: 436-P [facility] IN M.R.#: [id number] Admission: 03/06/21 Attend Phys: Ez March MD Discharge: 03/10/21 Date of : 41 Report #: [id number] THIS REPORT FOR: cc: Abel Chau,Abel Morales,Ez Chaney MD ~ DATE OF SERVICE: 03/06/2021 PREOPERATIVE DIAGNOSIS: Right elbow postoperative hardware infection. POSTOPERATIVE DIAGNOSIS: Right elbow postoperative hardware infection. PROCEDURE: Irrigation and debridement, right elbow with olecranon hardware plate removal. SURGEON: Ez March MD. FACTORY MAINTENANCE TECHNICIAN: Izabela Monique PA-C. ANESTHESIA: LMA. ESTIMATED BLOOD LOSS: 10 mL. COMPLICATIONS: None. SPECIMENS: Cultures were taken x 2. CONDITION UPON LEAVING THE OPERATING ROOM: Stable. INDICATIONS FOR PROCEDURE: The patient is a 75-year-old female who is a little over 2 months out from an ORIF of the right distal humerus with olecranon osteotomy. She presented to the clinic last week with opening of her incision and physical olecranon plate hardware as it was felt that she had an infection in her at least the olecranon and the plate and after discussion with her and her family, they elected for irrigation and debridement of the right elbow with possible hardware removal if the osteotomy was healed. DESCRIPTION OF PROCEDURE: Risks, benefits, alternatives, complications were discussed in detail with the patient including but not limited to risk of anesthesia, risk of damage to nerves, arteries, blood vessels, risk for infection, bleeding, risk for continued elbow pain and need for reoperation. Informed consent was obtained from the patient's brother who is the DPOA. The right elbow was appropriately marked in the preoperative holding area. She was brought to the operating room and placed in the supine position on the operating room table. LMA anesthesia was induced without complication. Tourniquet was [facility] [address] [place] [address] OPERATIVE REPORT Name: ELEANOR MOSQUEDA Room #: 436-P [facility] IN M.R.#: [id number] Admission: 03/06/21 Attend Phys: Ez March MD Discharge: 03/10/21 Date of : 41 Report #: [id number] placed on the right upper extremity. Right upper extremity was prepped and draped in normal sterile fashion. Timeout was performed properly identifying the patient and procedure as well as the instrumentation. All in the operating room were in agreement. The incision was then opened through the scar with a 15 blade. Dissection was taken down sharply to the plate. Cultures of the deep plate and bone were taken and sent x 2. The plate was dissected and the olecranon was visualized medial and lateral to the plate. There was no osteotomy line evident. It was felt that the osteotomy was healed and the screws and plate were removed. The olecranon was then again evaluated and it did appear to in fact be healed from the previous surgical osteotomy. The bone was then thoroughly irrigated with normal saline. There was no opening to the deeper tissue or to the distal humerus and this was left. After this, the skin was closed with 2-0 nylon. A soft dressing and a splint were applied. The patient tolerated this procedure well and went to recovery room under care of anesthesia postoperatively. <ELECTRONICALLY SIGNED> By: Ez March MD 03/11/21 0823 1747 1810 Ez March MD /nt
== END 2021-03-10 16:30 | DRG 497 ==
LOC: PRE 08:55 → 4S 13:17 → 4W 13:17 → PRE 14:01 → 4S 18:04
PROVIDERS: ADMIT Orthopaedic Surgery; ATTEND Orthopaedic Surgery
DX: T84.69XA Infection and inflammatory reaction due to internal fixation device of other site, initial encounter (principal); F03.90 Unspecified dementia, unspecified severity, without behavioral disturbance, psychotic disturbance, mood disturbance, and anxiety; X58.XXXA Exposure to other specified factors, initial encounter; Y83.8 Other surgical procedures as the cause of abnormal reaction of the patient, or of later complication, without mention of misadventure at the time of the procedure; Z20.822 Contact with and (suspected) exposure to COVID-19; Y83.1 Surgical operation with implant of artificial internal device as the cause of abnormal reaction of the patient, or of later complication, without mention of misadventure at the time of the procedure; Y92.89 Other specified places as the place of occurrence of the external cause; Z79.899 Other long term (current) drug therapy
CPT/HCPCS: 10102; 27000; 50010; 50101; 50386; 53078; 56525; 57091; 57103; 57178; 62110; 62900; 70005